=== PATIENT | male | born 1990 | race Caucasian/White ===

== ENCOUNTER 2024-11-04 22:40 | Emergency (ER) | payer MEDICAID, SELFPAY ==
--- NOTE | 2024-11-04 22:54 | ED.GENMED ---
History of Present Illness
General
Chief Complaint: Crisis Evaluation
Source: patient and records
Exam Limitations: altered mental status
Time Seen by Provider: 11/04/24 22:42
Nursing documentation reviewed up to this point in time: agreed with
History of Present Illness
History of Present Illness:
34-year-old male presents via police under 302 here is agitated suspicious using profanities,
Prior records reviewed most notably psychiatric evaluation
Patient sedated for his and staff safety
Past History
Past History
ED Past Medical History: Psychiatric
ED Past Surgical History: None
Social History
Tobacco: Non-smoker
Alcohol: None
Living: with family
Review of Systems
Review of Systems
All Other Systems: Not applicable
Constitutional: Reports fever
Phy Exam
Physical Exam
Physical Exam:
Physical Exam
General: Agitated male no overt signs of head or neck trauma
Neck: No tongue bite no jaundice
Heart: Regular
Lungs: no acute respiratory distress.
Neuro: Moves all extremities
Skin: no rash
Psychiatric: Agitated suspicious pressured speech
Extremities: no edema.
Course
Orders/Labs/Results
Orders:
Orders
11/04/24 22:46
Haloperidol Lactate [Haldol] 10 mg IM NOW STA
Lorazepam [Ativan] 2 mg IM NOW STA
11/04/24 22:47
Crisis Consult Routine
Reason for Consult: 3002
11/04/24 23:03
Acetaminophen Urgent
Alcohol Urgent
Complete Blood Count/With Diff Urgent
Comprehensive Metabolic Panel Urgent
Salicylate Urgent
11/04/24 23:23
Urine Drug Abuse Screen Urgent
Date Specimen was Collected: 11/04/24
Time Specimen was Collected: 23:22
Abnormal Lab Results
11/04/24
23:03
Glucose 104 H mg/dl
(70-99)
Salicylates < 1.0 L mg/dl
(2.0-20.0)
Acetaminophen < 10 L ug/ml
(10-30)
11/04/24 23:03
11/04/24 23:03
Vital Signs
Initial and Last Documented VS:
Initial Vital Signs
Temp Pulse Resp BP Pulse Ox
98.1 F 120 22 146/106 97
11/04/24 22:55 11/04/24 22:55 11/04/24 22:55 11/04/24 22:55 11/04/24 22:55
Last Documented Vital Signs
Temp Pulse Resp BP Pulse Ox
98.1 F 120 22 146/106 97
11/04/24 22:55 11/04/24 22:55 11/04/24 22:55 11/04/24 22:55 11/04/24 22:55
MDM/Problems Addressed
Differential Diagnosis Includes:
Intoxication, acute delaney, acute psychosis
MDM/Problems Addressed:
Agitation
Chronic conditions affecting care: Psychiatric illness
Acute Exacerbation and/or Progression of Chronic Illness: Psychiatric illness
*Pulse Oximetry
Patient hypoxic: no
*Critical Care Note
Total Time (30-74mins, 75-104mins- exclusive of procedures): Not Applicable
Update Note
Update Note:
12 midnight patient's labs are noted he is medically clear for psychiatric evaluation and placement
ED Attending Note
-
Portions of this chart may have been created with voice recognition software.� Occasional wrong word or��sound alike� substitutions may have occurred due to the inherent limitations of voice recognition software.
Discharge Plan
Departure
Patient Disposition: Psych Facility
Date of Disposition: 11/05/24
Time of Disposition: 00:02
Patient Status:: 302
Patient with high blood pressure during this ER visit?: No
Condition: Good
Discharge Problem:
acute delaney
Prescriptions:
No Action
Unobtainable
0
Referrals:
UNKNOWN - PT DOES,NOT KNOW [Family Provider] -
Interventions
Interventions:
*Risk Screen - Suicide Last Done: 11/04/24 22:57
*General Assessment Last Done: 11/04/24 22:57
*Neglect/Abuse Screening Last Done: 11/04/24 22:57
*ED- Fall Risk Assessment Last Done: 11/04/24 22:57
*ED COVID-19 Vaccine History Last Done: 11/04/24 22:57
ED-Psychological Assessment Last Done: 11/04/24 23:00
Discharge Date and Time
Print Language: MONGOLIAN
[2024-11-04 22:55] VITALS: BP 146/106
[2024-11-04 23:09] LABS: % Basophils 1.2 % (0-2); % Eosinophils 2.9 % (0-6); % Immature Granulocytes 0.2 % (0-0.5); % Lymphocytes 35.8 % (20.5-51.1); % Monocytes 6.9 % (1.7-9.3); Absolute Basophils 0.1 10^3/uL (0-0.2); Absolute Eosinophils 0.3 10^3/uL (0-0.7); Absolute Lymphocytes 3.3 10^3/uL (1.2-3.4); Absolute Monocytes 0.6 10^3/uL (0.1-0.6); Absolute Neutrophils 4.8 10^3/uL (1.4-6.5); Hematocrit 42.6 % (39.0-52.0); Hemoglobin 14.7 g/dL (13.0-18.0); Mean Corp Hgb Conc. 34.5 g/dL (33.0-37.0); Mean Corpuscular Hgb 30.4 pg (27.0-31.0); Mean Platelet Volume 8.8 fL (7.4-10.4); Nucleated Red Blood Cells % 0 % (-); Platelet Count 298 10^3/uL (130-400); Red Blood Cell Count 4.84 10^6/uL (4.70-6.10); Red Cell Dist. Width 12.6 % (11.5-14.5); White Blood Cell Count 9.1 10^3/uL (4.8-10.8)
[2024-11-04 23:24] LABS: ALT (SGPT) 19 U/L (0-50); AST (SGOT) 26 U/L (17-59); Acetaminophen < 10 ug/ml (10-30); Albumin 4.6 g/dl (3.5-5.0); Alcohol 42 mg/dl; Alkaline Phosphatase 60 U/L (38-126); Blood Urea Nitrogen 14 mg/dl (9-20); Calcium 9.4 mg/dl (8.4-10.2); Carbon Dioxide 23 mmol/L (22-30); Chloride 104 mmol/L (98-107); Glucose 104 mg/dl (70-99); Potassium 4.1 mmol/L (3.5-5.1); Salicylate < 1.0 mg/dl (2.0-20.0); Sodium 136 mmol/L (135-145); Total Bilirubin 0.5 mg/dl (0.2-1.3); Total Protein 6.8 g/dl (6.3-8.2); eGFR > 60.00
[2024-11-05 00:15] LABS: Amphetamines Negative (Negative); Barbiturates Negative (Negative); Benzodiazepines Negative (Negative); Buprenorphine Negative (Negative); Cocaine Negative (Negative); Marijuana Positive (Negative); Methadone Negative (Negative); Methamphetamines Negative (Negative); Opiates Negative (Negative); Phencyclidine Negative (Negative); Tricyclic Antidepressants Negative (Negative)
[2024-11-05] MEDS: NICODERM TRANSDERMAL 14 MG TRANSDERM (07:55)
== END 2024-11-05 08:49 ==
LOC: EMR 22:40
PROVIDERS: EMERGENCY PHYSICIAN Emergency Medicine
DX: F25.0 Schizoaffective disorder, bipolar type (principal); F19.10 Other psychoactive substance abuse, uncomplicated; Z91.148 Patient's other noncompliance with medication regimen for other reason
CPT/HCPCS: 99285; 80053; 80143; 80179; 80306; 82077; 85025